=== PATIENT | female | born 1955 | race Caucasian/White ===

== ENCOUNTER → 2017-03-08 | Outpatient (CLI) | payer BC ==
[~2017-03-08] MED LIST: ASCO1TAB17 PO; ASP81CT PO; CALC-69 PO; HCT25T PO; LEVO125T6 PO; METO25TA PO; NFBIOT1000 PO; OMEG1CAP24 PO
--- NOTE | 2017-03-08 17:24 | Diagnostic Imaging Report ---
Bilateral screening mammogram The current study was also evaluated with a Computer Aided Detection (CAD) system. Indication: Screening. No current complaints stated on the questionnaire. COMPARISON: 12/22/14 Findings: The breasts are composed of heterogeneously dense parenchyma which may decrease mammographic sensitivity. front desk monitor is seen in the medial aspect of the left breast. Scattered benign-appearing calcifications are noted. Allowing for technique and positional differences, no suspicious change is seen. IMPRESSION: No significant change. ACR BI-RADS Category 2: Benign findings. Result letter will be mailed to the patient. Note: At least 10% of breast cancer is not imaged by mammography. Dictated by: Dictated on workstation # [id number]
== END ==
LOC: RAD 13:38
PROVIDERS: ATTEND Internal Medicine
DX: Z12.31 Encounter for screening mammogram for malignant neoplasm of breast (principal)
CPT/HCPCS: 77067

== ENCOUNTER 2017-10-29 09:00 | Outpatient (CLI) | payer OTHER ==
[~2017-10-29] VITALS: Ht 175.3 cm; Wt 103.9 kg
[~2017-10-29 09:00] MED LIST changes: -ASCO1TAB12 PO; -ASPI-999 PO; -BIOT25007 PO; -CALC1TAB97 PO; -HYDR25TA4 PO; -METO-387 PO; -OMEG1CAP58 PO
[2017-10-29] MEDS ORDERED: OMEG1CAP58 PO (09:46)
[2017-10-29] MEDS ORDERED: BIOT25007 PO (09:46)
[2017-10-29] MEDS ORDERED: ASCO1TAB12 PO (09:46)
[2017-10-29] MEDS ORDERED: CALC1TAB97 PO (09:46)
[2017-10-29] MEDS ORDERED: HYDR25TA4 PO (09:46)
[2017-10-29] MEDS ORDERED: ASPI-999 PO (09:46)
[2017-10-29] MEDS ORDERED: METO-387 PO (09:46)
[2017-10-29] MEDS ORDERED: LEVO125T6 PO (09:46)
== END 2017-10-29 09:47 ==
LOC: PREOP 09:00
PROVIDERS: ATTEND Internal Medicine
DX: Z01.818 Encounter for other preprocedural examination (principal); R13.10 Dysphagia, unspecified

== ENCOUNTER → 2017-10-29 | Outpatient (CLI) | payer BC, OTHER ==
[~2017-10-29] MED LIST changes: +ASCO1TAB12 PO; +ASPI-999 PO; +BIOT25007 PO; +CALC1TAB97 PO; +HYDR25TA4 PO; +METO-387 PO; +OMEG1CAP58 PO
== END ==
LOC: CARD 11:44
PROVIDERS: ATTEND Internal Medicine Cardiovascular Disease
DX: I48.0 Paroxysmal atrial fibrillation (principal); I49.1 Atrial premature depolarization; I10 Essential (primary) hypertension; I47.1 Supraventricular tachycardia; I49.3 Ventricular premature depolarization; R07.9 Chest pain, unspecified; E78.2 Mixed hyperlipidemia; E03.9 Hypothyroidism, unspecified
CPT/HCPCS: 93306

== ENCOUNTER → 2018-07-03 | Outpatient (CLI) | payer OTHER ==
[~2018-07-03] MED LIST changes: +ASCO1TAB12 PO; +ASPI-999 PO; +BIOT25007 PO; +CALC1TAB97 PO; +HYDR25TA4 PO; +METO-387 PO; +OMEG1CAP58 PO
--- NOTE | 2018-07-03 08:49 | Diagnostic Imaging Report ---
Indication: Screening. The current study was also evaluated with a Computer Aided Detection (CAD) system. 3-D tomosynthesis was also performed and reviewed. Comparison made with prior examination of 03/08/2017 back to 06/06/2012. Findings: There are scattered fibroglandular densities bilaterally. There are a few benign type calcifications. There is no dominant mass, spiculated lesion or suspicious calcification identified. Impression: Category 2 benign. ACR BI-RADS Category 2: Benign findings. Result letter will be mailed to the patient. Note: At least 10% of breast cancer is not imaged by mammography. Dictated by: Dictated on workstation # [id number]
== END ==
LOC: RAD 07:55
PROVIDERS: ATTEND Internal Medicine
DX: Z12.31 Encounter for screening mammogram for malignant neoplasm of breast (principal)
CPT/HCPCS: 77067

== ENCOUNTER → 2019-07-08 | Outpatient (CLI) | payer BC ==
--- NOTE | 2019-07-08 12:59 | Diagnostic Imaging Report ---
INDICATION: Routine screening. COMPARISON: 07/03/2018 and 03/08/2017. TECHNIQUE: 2D and 3D bilateral screening mammography was performed with CAD. FINDINGS: Both breasts remain heterogeneously dense, limiting the sensitivity of mammography. An area of architectural distortion in the retroareolar right breast appears to be stable. The patient reportedly has a prior history of breast biopsy. There is a circumscribed nodular density in the posterior right breast lateral to the nipple line at approximately the 3 o'clock location. This is new since the prior exam and additional views are recommended. This is approximately 8 cm from the nipple. A cardiac monitoring device overlies the left breast. The left breast is otherwise unremarkable. No suspicious calcifications are seen. The axillae are unremarkable. IMPRESSION: There is an ovoid circumscribed nodular density in the outer right breast at posterior depth approximately 8 cm from the nipple. Further evaluation with ultrasound is recommended. In addition, sonographic interrogation of the retroareolar perhaps slightly upper and outer right breast is recommended at the area of architectural distortion. ACR BI-RADS Category 0: Incomplete. (Needs additional imaging evaluation). Result letter will be mailed to the patient. Note: At least 10% of breast cancer is not imaged by mammography. Dictated by: Dictated on workstation # [id number]
== END ==
LOC: RAD 07:53
PROVIDERS: ATTEND Internal Medicine
DX: Z12.31 Encounter for screening mammogram for malignant neoplasm of breast (principal); R92.8 Other abnormal and inconclusive findings on diagnostic imaging of breast
CPT/HCPCS: 77067

== ENCOUNTER → 2019-07-17 | Outpatient (CLI) | payer BC ==
--- NOTE | 2019-07-17 17:25 | Diagnostic Imaging Report ---
INDICATION: Circumscribed density in the outer right breast. In addition, there is questionable architectural distortion in the upper-outer retroareolar right breast. The study is performed for further evaluation. COMPARISON: Correlation is made with screening mammogram from 07/08/2019. FINDINGS: Sonographic interrogation of the outer right breast was performed. There are some dilated ducts at the 9 o'clock location. There are also multiple cysts in the outer right breast, largest at the 8:30 location, 6 cm from the nipple measuring approximately 7 mm x 6 mm. This likely accounts for the circumscribed density noted mammographically. In addition, a retroareolar upper-outer portion of the right breast was evaluated. No discrete mass is seen to account for the area of architectural distortion. IMPRESSION: 1. Simple cyst in the outer right breast, likely accounting for the mammographic density. 2. No sonographic abnormality is identified at the area of architectural distortion in the retroareolar right breast. Even so, follow-up right mammogram in six months is recommended to confirm stability. ACR BI-RADS Category 3: Probably benign findings. Dictated by: Dictated on workstation # [id number]
== END ==
LOC: RAD 14:04
PROVIDERS: ATTEND Internal Medicine
DX: N60.01 Solitary cyst of right breast (principal); R92.8 Other abnormal and inconclusive findings on diagnostic imaging of breast

== ENCOUNTER → 2020-01-19 | Outpatient (CLI) | payer BC ==
[~2020-01-19] MED LIST changes: -METO-387 PO; +MTP25TSR PO
--- NOTE | 2020-01-19 15:40 | Diagnostic Imaging Report ---
INDICATION: Six-month followup right breast density and right breast architectural distortion. COMPARISON: Correlation is made with prior mammograms dating back to 2014. TECHNIQUE: Unilateral right 2D and 3D diagnostic mammography was performed with CAD. FINDINGS: The right breast remains heterogeneously dense. Circumscribed densities in the posterior outer right breast appear stable and are most consistent with cysts. There continues to be an area of questionable architectural distortion in the retroareolar right breast, best seen on the CC view. There are scattered benign calcifications. No other abnormalities are seen. The right axilla is unremarkable. IMPRESSION: Continued questionable architectural distortion in the retroareolar right breast. This cannot be visualized previously with sonography. MRI of the breast would be recommended for further evaluation. ACR BI-RADS Category 0: Incomplete. (Needs additional imaging evaluation). Result letter will be mailed to the patient. Note: At least 10% of breast cancer is not imaged by mammography. Dictated by: Dictated on workstation # [id number]
== END ==
LOC: RAD 14:11
PROVIDERS: ATTEND Internal Medicine
DX: R92.8 Other abnormal and inconclusive findings on diagnostic imaging of breast (principal)

== ENCOUNTER → 2020-01-22 | Outpatient (CLI) | payer BC ==
[~2020-01-22] MED LIST changes: +GADOBUTROL 10 MMOL/10 ML (GADAVIST) VIAL IV ONE; +NS 50 ML (IVPB) BAG IV ONE
[2020-01-22 12:27] LABS: BUN/CREATININE RATIO 23; CREATININE SERUM 0.82 MG/DL (0.60-1.30); GFR ESTIMATED > 60
--- NOTE | 2020-01-22 18:49 | Diagnostic Imaging Report ---
EXAMINATION: MRI breast bilateral with and without contrast with 3D CAD TECHNIQUE: Utilizing a 1.5 Coretta magnet, the patient was placed in the prone position with an 8-channel dual breast coil utilized. Axial STIR precontrasted and axial T1 fat-sat post contrast high-resolution images were obtained. Sagittal T2-weighted images precontrast bilaterally were performed as well. Axial vibrant temporal images were obtained post contrast with bolus technique utilizing gadolinium. Images are post contrast immediately and subsequently for 7 minutes. Pre and post contrast images are then evaluated with CADstream for evaluation of possible angiogenesis. INDICATION: Further evaluation of right breast architectural distortion seen on mammogram. No correlative finding was seen on prior ultrasound exam. Patient reports a history of breast cancer in her sister, diagnosed at age 77. COMPARISON: Baseline breast MRI. Comparison is made to multiple prior mammograms dating back to 2008, as well as more recent diagnostic mammogram performed on 01/19/2020 and right breast ultrasound performed on 07/17/2019. FINDINGS: Some degree of artifact from motion/misregistration is expected, which limits evaluation and interpretation was made in light of this technical confine. RIGHT BREAST: The breast is composed of scattered fibroglandular tissue. There is mild background parenchymal enhancement, with scattered foci of enhancement also related to background. There is no suspicious mass or non-mass enhancement above background. There are no definite findings to correspond to the area of mammographic architectural distortion in the outer, central to lower breast at anterior depth. Incidental note is made of small T2 hyperintense, T1 hypointense peripherally enhancing lesions in the 7-8 o'clock breast at posterior depth and 9:00 breast at middle depth, compatible with cysts demonstrating mild inflammation in the wall. This corresponds to findings on mammogram and ultrasound. There is no axillary or internal mammary adenopathy. LEFT BREAST: Evaluation is somewhat limited secondary to streak artifact caused by loop recorder device in the medial left breast. The breast is composed of scattered fibroglandular tissue. There is mild background parenchymal enhancement, with scattered foci of enhancement also related to background. There is no suspicious mass or non-mass enhancement above background. There is no axillary or internal mammary adenopathy. IMPRESSION: RIGHT BREAST: There is no MR evidence of malignancy and no definite findings to correspond to the mammographic architectural distortion; however, today's exam is slightly limited secondary to artifact caused by motion/misregistration. Given the prior mammographic findings, stereotactic biopsy of the suspicious architectural distortion is recommended. LEFT BREAST: No MR evidence of malignancy. FINAL ASSESSMENT: ACR BI-RADS Category 4: Suspicious RECOMMENDATION: Tomosynthesis stereotactic-guided core biopsy of right breast architectural distortion. Dictated by: Dictated on workstation # [id number]
== END ==
LOC: RAD 11:13
PROVIDERS: ATTEND Internal Medicine
DX: N64.89 Other specified disorders of breast (principal); Z80.3 Family history of malignant neoplasm of breast
CPT/HCPCS: 36415; 77049; 82565; 84520

== ENCOUNTER → 2020-02-09 | Outpatient (CLI) | payer BC ==
[~2020-02-09] VITALS: Ht 172.7 cm; Wt 106.4 kg
[~2020-02-09] MED LIST changes: -GADOBUTROL 10 MMOL/10 ML (GADAVIST) VIAL IV ONE; +LIDOCAINE 1% INJ 20 ML 20 ML VIAL INJ ONE; +LIDOCAINE 1% INJ 20 ML 20 ML VIAL ONE; -NS 50 ML (IVPB) BAG IV ONE
--- NOTE | 2020-02-09 10:59 | Diagnostic Imaging Report ---
INDICATION: Right breast architectural distortion. Patient presents for tomosynthesis stereotactic biopsy. The patient is brought to the mammography suite placed in the sitting upright position. Right breast was positioned in a craniocaudal fashion. The area of architectural distortion in the anterior right breast was targeted utilizing tomosynthesis images. Superior right breast was prepped and draped in usual sterile fashion. A small amount of 1% lidocaine utilized for local anesthesia. A 8 gauge stereotactic needle was advanced and place with its tip per tomosynthesis coordinates. A total of 4 core biopsies were obtained utilizing a vacuum-assisted device. All images were viewed on dedicated workstation. Marker clip was then deployed. A follow-up 2-D CC and MLO mammography was performed. IMPRESSION: Successful stereotactic guided biopsy of the right breast utilizing vacuum-assisted device. Pathology results are currently pending. Dictated by: Dictated on workstation # [id number]
== END ==
LOC: RAD 09:30
PROVIDERS: ATTEND Internal Medicine
DX: N60.11 Diffuse cystic mastopathy of right breast (principal); N60.01 Solitary cyst of right breast; N62 Hypertrophy of breast; R92.0 Mammographic microcalcification found on diagnostic imaging of breast
CPT/HCPCS: 19081

== ENCOUNTER → 2021-01-10 | Outpatient (CLI) | payer BC ==
[~2021-01-10] MED LIST changes: -LIDOCAINE 1% INJ 20 ML 20 ML VIAL INJ ONE; -LIDOCAINE 1% INJ 20 ML 20 ML VIAL ONE
--- NOTE | 2021-01-10 13:46 | Diagnostic Imaging Report ---
INDICATION: Routine screening. Comparison is made with prior mammogram from 07/08/2019 and 07/03/2018. 2-D and 3-D bilateral screening mammography was performed with CAD. Both breasts remain heterogeneously dense, limiting the sensitivity of mammography. Postbiopsy changes in the retroareolar right breast are noted with marker clip in place. Cardiac monitoring device overlies the medial soft tissues of the left breast. Left breast parenchyma appears to be stable. No concerning mass or malignant appearing microcalcifications are seen. Axillae are unremarkable. IMPRESSION: BI-RADS Category 2 No mammographic features suspicious for malignancy are identified. ACR BI-RADS Category 2: Benign findings. Result letter will be mailed to the patient. Note: At least 10% of breast cancer is not imaged by mammography. Dictated by: Dictated on workstation # [id number]
== END ==
LOC: RAD 07:30
PROVIDERS: ATTEND Internal Medicine
DX: Z12.31 Encounter for screening mammogram for malignant neoplasm of breast (principal)
CPT/HCPCS: 77063; 77067

== ENCOUNTER → 2022-02-10 | Outpatient (CLI) | payer BC | LOC: CARD 14:01 | PROVIDERS: ATTEND Physician Assistant | DX: I10 Essential (primary) hypertension (principal); I25.10 Atherosclerotic heart disease of native coronary artery without angina pectoris | CPT/HCPCS: 93306 ==

== ENCOUNTER → 2022-04-11 | Outpatient (CLI) | payer BC ==
--- NOTE | 2022-04-11 13:00 | Diagnostic Imaging Report ---
INDICATION: Routine screening. COMPARISON: 01/10/2021 and 07/08/2019. TECHNIQUE: 2D and 3D bilateral screening mammography was performed with CAD. FINDINGS: Both breasts are heterogeneously dense, limiting the sensitivity of mammography. Post biopsy changes in the right breast with a biopsy clip are noted. There is an enlarging circumscribed density at the biopsy site in the retroareolar right breast. Further evaluation with ultrasound is recommended. A cardiac monitoring device overlies the medial left breast soft tissues. No spiculated mass is identified. No malignant-appearing microcalcifications are seen. There are benign calcifications. The axillae are unremarkable. IMPRESSION: Enlarging circumscribed density in the retroareolar right breast. Further evaluation with ultrasound is recommended. ACR BI-RADS Category 0: Incomplete. (Needs additional imaging evaluation). Result letter will be mailed to the patient. Note: At least 10% of breast cancer is not imaged by mammography. Dictated by: Dictated on workstation # [id number]
== END ==
LOC: RAD 08:45
PROVIDERS: ATTEND Internal Medicine
DX: Z12.31 Encounter for screening mammogram for malignant neoplasm of breast (principal)
CPT/HCPCS: 77063; 77067

== ENCOUNTER → 2022-04-14 | Outpatient (CLI) | payer BC ==
--- NOTE | 2022-04-14 12:11 | Diagnostic Imaging Report ---
INDICATION: Abnormal mammogram. CORRELATION is made with screening mammogram from 04/11/2022. Sonographic interrogation of the retroareolar right breast was performed. There is a simple appearing cyst measuring 12 mm x 7 mm x 8 mm, likely accounting for the mammographic density. No solid mass is detected. IMPRESSION: BI-RADS Category 2 Simple cyst retroareolar right breast, corresponding with the mammographic density. The patient may return to routine annual screening mammography. ACR BI-RADS Category 2: Benign findings. Result letter will be mailed to the patient. Note: At least 10% of breast cancer is not imaged by mammography. Dictated by: Dictated on workstation # [id number]
== END ==
LOC: RAD 10:27
PROVIDERS: ATTEND Internal Medicine
DX: N60.01 Solitary cyst of right breast (principal)